=== PATIENT | female | born 1995 | race African-American/Black ===

== ENCOUNTER → 2018-08-02 | Outpatient (CLI) | payer MEDICAID, OTHER ==
[2018-08-02 13:54] LABS: HEMATOCRIT 33.1 % (36.0-47.0); HEMOGLOBIN 11.7 g/dl (12.0-15.5); MEAN CORPUSCULAR HGB CONC 35.3 g/dl (32.0-36.5); MEAN CORPUSCULAR VOLUME 99.1 fl (80.0-96.0); PLATELET COUNT, AUTOMATED 328 10^3/uL (150-450); RED BLOOD COUNT 3.34 10^6/uL (4.00-5.40); RED CELL DISTRIBUTION WIDTH 11.9 % (11.5-14.5); WHITE BLOOD COUNT 8.2 10^3/uL (4.0-10.0)
[2018-08-02 14:10] LABS: GLUCOSE CHALLENGE TEST 1 HOUR 75 MG/DL (LESS THAN 140)
== END ==
LOC: M LAB 12:18
DX: Z34.82 Encounter for supervision of other normal pregnancy, second trimester (principal); Z3A.00 Weeks of gestation of pregnancy not specified
CPT/HCPCS: 82950

== ENCOUNTER → 2018-08-04 | Outpatient (CLI) | payer MEDICAID ==
[~2018-08-04] MED LIST: ACETAMINOPHEN 500 MG TAB PO; FLUCONAZOLE 50MG TABLET PO
== END ==
LOC: M LDO 23:20
DX: O26.893 Other specified pregnancy related conditions, third trimester (principal); N89.8 Other specified noninflammatory disorders of vagina; O23.593 Infection of other part of genital tract in pregnancy, third trimester; Z3A.28 28 weeks gestation of pregnancy
CPT/HCPCS: 59025

== ENCOUNTER → 2018-09-26 | Outpatient (REF) | payer OTHER | LOC: M LAB REF 13:32 | PROVIDERS: ATTEND Obstetrics & Gynecology | DX: Z34.83 Encounter for supervision of other normal pregnancy, third trimester (principal); Z3A.00 Weeks of gestation of pregnancy not specified ==

== ENCOUNTER 2018-10-19 15:33 | Inpatient (IN) | payer OTHER ==
[~2018-10-19] VITALS: Ht 170.2 cm; Wt 69.9 kg
[2018-10-19] VITALS (14 sets, daily range): BP systolic 118–150; BP diastolic 72–103
[2018-10-19] MEDS ORDERED: LR 800 ML IV SCH (16:00)
[2018-10-19] MEDS ORDERED: LR 1,000 ML IV SCH (16:00)
[2018-10-19 16:22] LABS: HEMATOCRIT 34.9 % (36.0-47.0); HEMOGLOBIN 12.4 g/dl (12.0-15.5); MEAN CORPUSCULAR HEMOGLOBIN 33.5 pg (27.0-33.0); MEAN CORPUSCULAR HGB CONC 35.5 g/dl (32.0-36.5); MEAN CORPUSCULAR VOLUME 94.3 fl (80.0-96.0); PLATELET COUNT, AUTOMATED 339 10^3/uL (150-450); WHITE BLOOD COUNT 12.1 10^3/uL (4.0-10.0)
[2018-10-19] MEDS ORDERED: FENTANYL 2MCG/ML ROPIVACAINE 0.2% IN 0.9% NACL 100ML IVBAG As Ordered ONE (18:18)
[2018-10-19] MEDS ORDERED: diphenhydrAMINE INJ 50MG/ML VIAL (J1200) IV PRN (19:15)
[2018-10-19] MEDS ORDERED: ONDANSETRON 4MG/2ML VIAL (J2405) IV PRN (19:15)
[2018-10-19] MEDS ORDERED: LACTATED RINGER'S 1000 ML IV PRN (19:15)
[2018-10-19] MEDS ORDERED: ePHEDrine SULFATE 25 MG/5 ML(5MG/ML) SYRINGE IV PRN (19:15)
[2018-10-19] MEDS ORDERED: EPIDURAL/PCA KEYS XX PRN (19:15)
[2018-10-19] MEDS ORDERED: NALOXONE INJ 0.4 MG/1 ML VIAL (J2310) IV PRN (19:15)
[2018-10-19] MEDS ORDERED: FENTANYL/ROPIVACAINE/NACL BAG 100 ML EPIDURAL SCH (19:15)
[2018-10-19] MEDS ORDERED: EPIDURAL COMMENT XX SCH (19:15)
[2018-10-19] MEDS ORDERED: REFRIGERATOR IV KEYS XX PRN (19:15)
[2018-10-19] MEDS ORDERED: OXYTOCIN DRIP 30 UNITS in APPROPRIATE DILUENT 1 EA IV SCH ×2 (20:15→21:12)
[2018-10-19] MEDS ORDERED: ACETAMINOPHEN 500 MG TAB PO PRN (21:15)
[2018-10-19] MEDS ORDERED: DOCUSATE SODIUM 100 MG CAP PO PRN (21:15)
[2018-10-19] MEDS ORDERED: DIBUCAINE 1% OINTMENT 30GM TOP PRN (21:15)
[2018-10-19] MEDS ORDERED: RHOGAM 300 MCG (1500 IU) INJ (J2790) IM SCH (21:15)
[2018-10-19] MEDS ORDERED: ANUSOL HC CREAM 30GM TOP PRN (21:15)
[2018-10-19] MEDS ORDERED: METHYLERGONOVINE MALEATE 0.2 MG TAB PO PRN (21:15)
[2018-10-19] MEDS ORDERED: MEASLES,MUMPS,RUBELLA VACCINE INJ (MMR-II) (90707) SC SCH (21:15)
[2018-10-19 21:50] LABS: CORD GAS ABE A -3.5; CORD GAS ABE V -2.2; CORD GAS HCO3 V 23.7 MEQ/L; CORD GAS O2 SAT A 43.2 %; CORD GAS O2 SAT V 51.5 %; CORD GAS PCO2 A 52.9 mmHg; CORD GAS PCO2 V 44.9 mmHg; CORD GAS PH A 7.275 UNITS; CORD GAS PH V 7.341 UNITS; CORD GAS PO2 A 21.3 mmHg; CORD GAS PO2 V 22.2 mmHg; CORD GAS SBC A 20.3 MEQ/L; CORD GAS SBC V 21.5 MEQ/L; CORD GAS TCO2 A 25.6 MEQ/L; CORD GAS TCO2 V 25.1 MEQ/L
[2018-10-20] MEDS: IBUPROFEN 800 MG TAB PO PRN ×2 (04:39→12:56)
[2018-10-20 06:27] VITALS: BP 98/55
[2018-10-20] MEDS: PRENATAL VITAMINS CHEWABLE TABLET PO SCH (08:00)
[2018-10-20 10:00] VITALS: BP 113/59
[2018-10-20 18:00] VITALS: BP 111/59
--- NOTE | 2018-10-20 23:30 | HPE ---
DATE OF ADMISSION: 10/19/2018 Max is a 23-year-old female 1, para 0 with an estimated date of confinement (EDC) of 10/26/2018, estimated gestational age (EGA) 39-1/7 weeks gestation, who presented to the office with complaints of contractions and pelvic pressure. Upon evaluation, she was found to be 5 cm, 90% with a fetus at zero station, in vertex position. At this point, a decision was made for admission. Her record reviewed. PAST MEDICAL HISTORY: Denies. PAST SURGICAL HISTORY: Denies. SOCIAL HISTORY: She denies any alcohol, drugs or cigarette smoking. REVIEW OF SYSTEMS: Unremarkable. MEDICATIONS: vitamin ALLERGIES: No known drug allergies. PHYSICAL EXAMINATION ON ADMISSION: HEENT: Grossly within normal limits. Abdomen: Soft, nontender, nondistended. Extremities: No clubbing, cyanosis or edema. Vaginal exam: 5 cm, 90%, fetus at zero station, in vertex position. Tracing reviewed. Category one tracing with contractions every 2-3 minutes. LABORATORY: Blood type A+, rubella immune, hepatitis negative, human immunodeficiency virus (HIV) negative, GC and chlamydia negative. One-hour sugar testing was within normal limits. Her Group B streptococcus (GBS) was negative. ASSESSMENT: 1. Intrauterine at 39-1/7 weeks gestation in active labor. 2. Group B streptococcus (GBS) negative. PLAN: Admit to labor and delivery. Routine labs sent. Pain management discussed. The patient opted for an epidural, will continue to monitor. Anticipate delivery.
[2018-10-21] MEDS: IBUPROFEN 800 MG TAB PO PRN (06:15)
[2018-10-21 06:25] VITALS: BP 126/84
--- NOTE | 2018-10-21 07:16 | DN ---
DATE OF DELIVERY: 10/19/2018 Max is a 23-year-old female, 1, para 0, was admitted at 39-1/7 weeks gestation after presenting in active labor. She progressed to fully dilated, delivered a live male infant over an intact perineum in right occiput anterior position. scores 9/9, birthweight 6 pounds 3 ounces. Placenta delivered spontaneously intact. Three-vessel cord. Perineum, vagina, cervix inspected. No laceration noted. Estimated blood loss 250 mL. Both mother and baby in stable condition.
[2018-10-21] MEDS: PRENATAL VITAMINS CHEWABLE TABLET PO SCH (09:08)
[2018-10-21] MEDS ORDERED: ACET500T15 PO (09:36)
[2018-10-21] MEDS ORDERED: MOTR200T44 PO (09:36)
== END 2018-10-21 12:25 | disposition home or self-care (01) | DRG 560 ==
LOC: M LDI 15:33 → M OBS 23:53
PROVIDERS: ADMIT Obstetrics & Gynecology; ATTEND Obstetrics & Gynecology
PROC: 10E0XZZ Delivery of Products of Conception, External Approach (ICD-10-PCS; principal; 2018-10-19)
DX: O80 Encounter for full-term uncomplicated delivery (principal); Z37.0 Single live birth; Z3A.39 39 weeks gestation of pregnancy